=== PATIENT | male | born 1945 | race Caucasian/White ===

== ENCOUNTER 2022-04-18 05:52 | Day surgery (SDC) | payer MEDICARE, OTHER ==
[~2022-04-18] VITALS: Ht 172.7 cm; Wt 86.4 kg
[~2022-04-18 05:52] MED LIST: HYDROCHLOROTHIA25 MG PO; HYDROCODON-ACE1 EA10 PO; IBUPROFEN600 MG PO; LISINOPRIL5 MG PO; MAPAP325 MG PO
--- NOTE | 2022-04-18 09:04 | NUR ---
04/18/22 0904 Sheets,Yasemin 0847 PT ARRIVED TO PACU ON RA WITH ORAL AIRWAY IN PLACE. RESP EVEN AND UNLABORED, UPPER WHEEZE NOTED AND NOSIEY AIRWAY NOTED. DECREASED BP NOTED AND SURVEYOR HELPER ROD AWARE. PT NONAROUSABLE TO PAINFUL STIMULI. 0856 O2 MASK PLACED AT 6L DUE TO O2 SAT 89-90% ON RA. 0857 CNRA GAVE BP MEDICATION. 0859 PT OPENED HIS AND SMALL COUGH NOTED WITH TACTILE STIMULI. AIRWAY REAMINS IN PLACE AND PT GOES BACK TO SLEEP WITH SNORING NOTED. 0902 O2 MASK REMOVED, O2 SAT 100%.
[2022-04-18] MEDS ORDERED: TYLENOL EXTRA500 MG PO (09:15)
[2022-04-18] MEDS ORDERED: HYDROCODON-ACE1 EA10 PO (09:16)
--- NOTE | 2022-04-18 09:39 | NUR ---
ICED WATER AND COFFEE GIVEN. CALL LIGHT WITHIN REACH. SPOUSE AT BEDSIDE.
--- NOTE | 2022-04-18 10:39 | OR ---
[facility] [address], [place] [address] Signed DATE OF OPERATION: 04/18/2022 SURGEON: Reyna Pacheco MD PREOPERATIVE DIAGNOSES: 1. Right lateral upper lid skin lesion of eye. 2. Left facial epidermal inclusion cyst (large). POSTOPERATIVE DIAGNOSES: 1. Right lateral upper lid chalazion. 2. Left facial epidermal inclusion cyst. PROCEDURES: 1. Excision of right lateral upper lid chalazion. 2. Excision of left facial skin lesion (epidermal inclusion cyst, excision size 4 cm). ANESTHESIA: General LMA, Fredis Siemens, SPECIAL DELIVERY CARRIER INDICATIONS: This 76-year-old white man is a patient of GRACY Lowery. He was referred with a large skin lesion of the left face, seen by superintendent pressure and considered inappropriate for excision in their office. The lesion appears to be a large epidermal inclusion cyst, which has an open pit in the central portion. Almost certainly it is a benign epidermal inclusion cyst. He is here for excision. On the morning of operation, he asks additionally as does his who accompanies him for excision of a right lateral upper eyelid lesion. Examination of the lesion shows it to be initially apparent of a probable skin tag but upon examination and operation more likely a chalazion. He understands the risk of the excision of both lesions including, but not limited to bleeding, infection, eyelid deformity, and other unforeseen complications. Understanding this, he wishes to proceed. FINDINGS: The eyelid lesion in the final analysis was most likely a chalazion. It was excised intact and fully without disruption to the normal anatomic structures. The left facial lesion was definitely an epidermal inclusion cyst, which was rather large. A 4 cm excision was required to excise it fully. It was then excised intact. Electronically Signed By: REYNA PACHECO MD 04/18/22 1039 PATIENT NAME: ANDI MARTINEZ OPERATIVE REPORT DATE OF : 43 REPORT #: [id number] PHYSICIAN: REYNA PACHECO MD PCP: TONIA PITTS NP REPORT IS CONFIDENTIAL AND NOT TO BE RELEASED WITHOUT AUTHORIZATION [facility] [address], [place] [address] Signed DESCRIPTION OF PROCEDURE: The patient was brought to the operating room, and given a general LMA type anesthetic. Preoperative antibiotic Ancef was given. Examination first was undertaken of the right lateral upper lid skin lesion. The lesion appeared to be inferior to the eyelash or likely this represented a chalazion and a simple skin tag. A neomycin polymyxin B and dexamethasone ophthalmic ointment was placed on the sclerae. The area was carefully prepared with Betadine swabs. An isolating blue towel drape was applied. The lesion was grasped with Adson forceps and using a 15 blade, carefully shelled out from surrounding tissue. No deep tissue destruction occurred. It was passed as skin lesion of eyelid. Minimal needlepoint electrocautery was used for small capillary bleeding. Two interrupted 6-0 nylon sutures were used to close the skin of the area. The eyelid was replaced in normal anatomic configuration. A small Band-Aid applied and tape applied to protect the eye for the following procedure. Gowns and gloves were changed and the left face was then prepared with a Betadine based solution and draped sterilely. The lesion was marked and its subdermal extent was approximately 2 cm at least. Along the line of skin tension, elliptical incision was made incorporating the central punctum of the eroding skin lesion. Using sharp dissection with a 15-blade, the lesion was shelled out including the overlying skin. Complete excision with intact lesion was noted. Electrocautery was used for hemostasis in the base of the wound. The wound was irrigated. The wound was closed in layers with interrupted 4-0 Vicryl and a running 4-0 nylon for the skin itself. Bacitracin was applied to the site as was a Band-Aid. The patient was ultimately extubated and transferred to the recovery room in good condition having suffered no complications. Sponge, needle, and instrument counts were reported as correct x3. Reyna Pacheco MD JM/MODL /[id number] Electronically Signed By: REYNA PACHECO MD 04/18/22 1039 PATIENT NAME: ANDI MARTINEZ OPERATIVE REPORT DATE OF : 43 REPORT #: [id number] PHYSICIAN: REYNA PACHECO MD PCP: TONIA PITTS NP REPORT IS CONFIDENTIAL AND NOT TO BE RELEASED WITHOUT AUTHORIZATION [address] [address] Signed cc: GRACY Lowery Copies: ~ Electronically Signed By: REYNA PACHECO MD 04/18/22 1039 PATIENT NAME: ANDI MARTINEZ OPERATIVE REPORT DATE OF : 43 REPORT #: [id number] PHYSICIAN: REYNA PACHECO MD PCP: TONIA PITTS NP REPORT IS CONFIDENTIAL AND NOT TO BE RELEASED WITHOUT AUTHORIZATION
--- NOTE | 2022-04-18 10:42 | NUR ---
PATIENT STANDS AT THE BEDSIDE AND SELF-CATHETERIZES INTO URINAL, WHICH IS BASELINE FOR HIM. HE DENIES DIZZINESS. VERBAL AND WRITTEN DISCHARGE INSTRUCTIONS ARE PROVIDED AND PATIENT AND HIS SPOUSE VERBALIZE UNDERSTANDING.
== END 2022-04-18 10:55 | disposition home or self-care (01) ==
LOC: DS 05:52
PROVIDERS: ATTEND Surgery
PROC: 0HB1XZZ Excision of Face Skin, External Approach (ICD-10-PCS; 2022-04-18)
PROC: 08BNXZZ Excision of Right Upper Eyelid, External Approach (ICD-10-PCS; principal; 2022-04-18 07:30)
DX: D36.11 Benign neoplasm of peripheral nerves and autonomic nervous system of face, head, and neck (principal); H00.11 Chalazion right upper eyelid; D48.5 Neoplasm of uncertain behavior of skin; I10 Essential (primary) hypertension; L72.0 Epidermal cyst
CPT/HCPCS: 00300; J0690; J1644; J2250; J2704; J3010; J7121

== ENCOUNTER 2023-09-06 08:30 | Emergency (ER) | payer MEDICARE, OTHER ==
[~2023-09-06] VITALS: Ht 172.7 cm; Wt 83.6 kg
[~2023-09-06 08:30] MED LIST changes: +TYLENOL EXTRA500 MG PO
--- OUTSIDE RECORDS SUMMARY | 2023-09-06 08:37 | XMS ---
PreManage Notification: ANDI MARTINEZ Security Residence Hall Director Events No recent Security Events currently on file CRITERIA MET - [facility] - 2 Visits in 30 Days CARE PROVIDERS -, [facility]: [place] Assistant Current [place] PHONE: [phone] -, Ishan- Dentist: [place] Assistant Current [facility] PHONE: [phone] [facility]/Center: [facility] Current \F\ [facility] PHONE: [phone] Antonio has no Care Guidelines for this patient. [facility] (12 MO.) [facility] NOTE: Visits indicate total known visits. ED/UCC VISIT TRACKING (12 MO.) 09/06/2023 08:31 [facility] [place] TYPE: Emergency COMPLAINT: - CONSTIPATION 08/10/2023 08:50 [facility] Kip [facility] ([place]) TYPE: Emergency DIAGNOSES: - Constipation, unspecified - Constipated - Constipation INPATIENT VISIT TRACKING (12 MO.) No inpatient visits to display in this time frame [email or web address]
[2023-09-06] MEDS ORDERED: LOSARTAN POTASS50 MG PO (08:42)
[2023-09-06] MEDS ORDERED: INDAPAMIDE1.25 MG PO (08:42)
[2023-09-06 09:06] LABS: EOSINOPHILS 1.4 % (0-6); HEMATOCRIT 49.1 % (35.0-50.0); HEMOGLOBIN 16.7 g/dL (12.0-18.0); LYMPHOCYTES 12.9 % (24-44); MCH 29.9 (27-36); MONOCYTES 9.7 % (0-12); PLATELET COUNT 212 K/uL (140-440); RBC 5.57 M/ul (4.3-5.7); RDW 14.1 (10.5-15.0)
[2023-09-06 09:18] LABS: ALBUMIN 3.1 g/dL (3.4-5.0); ALBUMIN/GLOBULIN RATIO 0.76 (1.1-2.4); ANION GAP 11.9 (7-21); BILIRUBIN, TOTAL 0.6 ng/dL (0.2-1.0); BUN/CREATININE RATIO 16.98 (6.0-28.6); CALCIUM 9.5 mg/dL (8.5-10.1); CREATININE, SERUM 1.06 mg/dL (0.70-1.30); POTASSIUM 3.9 mmol/L (3.5-5.1); PROTEIN, TOTAL 7.2 g/dL (6.4-8.2)
[2023-09-06] MEDS ORDERED: GOLYTELY SOLU4000 ML PO (09:47)
[2023-09-06 09:58] VITALS: BP 127/76
== END 2023-09-06 09:58 | disposition home or self-care (01) ==
LOC: ED 08:30
PROVIDERS: Emergency Medicine
DX: K59.00 Constipation, unspecified (principal); R74.8 Abnormal levels of other serum enzymes; F17.200 Nicotine dependence, unspecified, uncomplicated; I10 Essential (primary) hypertension
CPT/HCPCS: 36415; 74019; 80053; 83735; 85025; 99283

== ENCOUNTER 2023-12-27 12:27 | Emergency (ER) | payer MEDICARE, OTHER ==
[~2023-12-27] VITALS: Ht 172.7 cm; Wt 83.1 kg
[~2023-12-27 12:27] MED LIST changes: +GOLYTELY SOLU4000 ML PO; +INDAPAMIDE1.25 MG PO; +LOSARTAN POTASS50 MG PO
[2023-12-27] MEDS ORDERED: PREDNISONE5 MG PO (13:29)
[2023-12-27] MEDS ORDERED: ABIRATERONE AC250 MG PO (13:29)
[2023-12-27] MEDS ORDERED: SODIUM CHLORIDE 0.9% 1,000 ML IV ONE (13:30)
[2023-12-27] MEDS ORDERED: ondansetron HCL 4 MG/2 ML VIAL IV ONE (13:30)
[2023-12-27 13:32] LABS: BASOPHILS 0.1 % (0-2); EOSINOPHILS 2.4 % (0-6); HEMATOCRIT 38.4 % (35.0-50.0); HEMOGLOBIN 12.7 g/dL (12.0-18.0); LYMPHOCYTES 5.8 % (24-44); MCH 28.8 (27-36); MCHC 33.1 g/dl (30-36); MCV 87.1 fl (81-99); MONOCYTES 13.2 % (0-12); NEUTROPHILS 78.5 % (39-80); PLATELET COUNT 248 K/uL (140-440); RBC 4.41 M/ul (4.3-5.7)
[2023-12-27 13:44] LABS: ALBUMIN 2.6 g/dL (3.4-5.0); ALBUMIN/GLOBULIN RATIO 0.67 (1.1-2.4); ANION GAP 11.8 (7-21); BILIRUBIN, TOTAL 0.4 ng/dL (0.2-1.0); BUN/CREATININE RATIO 23.85 (6.0-28.6); CALCIUM 9.2 mg/dL (8.5-10.1); CREATININE, SERUM 1.09 mg/dL (0.70-1.30); POTASSIUM 4.8 mmol/L (3.5-5.1); PROTEIN, TOTAL 6.5 g/dL (6.4-8.2)
[2023-12-27] MEDS ORDERED: KETOROLAC TROMETHAMINE 30 MG/ML VIAL IV ONE (13:45)
[2023-12-27 13:49] LABS: BILIRUBIN, URINE NEGATIVE (negative); BLOOD/HGB, URINE NEGATIVE (Negative); KETONE, URINE NEGATIVE (Negative); LEUK ESTERASE, URINE NEGATIVE (negative); NITRITE, URINE NEGATIVE (negative); PH, URINE 6.5 (5-7)
[2023-12-27] MEDS ORDERED: ONDANSETRON ODT8 MG PO (16:25)
[2023-12-27 16:35] VITALS: BP 108/62
== END 2023-12-27 16:35 | disposition home or self-care (01) ==
LOC: ED 12:27
PROVIDERS: Emergency Medicine
DX: R10.11 Right upper quadrant pain (principal); K80.20 Calculus of gallbladder without cholecystitis without obstruction; C61 Malignant neoplasm of prostate; C79.51 Secondary malignant neoplasm of bone; R91.1 Solitary pulmonary nodule; J90 Pleural effusion, not elsewhere classified; I10 Essential (primary) hypertension; F17.200 Nicotine dependence, unspecified, uncomplicated; Z79.899 Other long term (current) drug therapy
CPT/HCPCS: 36415; 71045; 71260; 74177; 76705; 80053; 81003; 83690; 85025; 99284-25; J1885; J2405; J7030; Q9967

== ENCOUNTER 2024-06-19 08:04 | Inpatient (IN) | payer MEDICARE, MEDICAID ==
[~2024-06-19] VITALS: Ht 172.7 cm; Wt 81.8 kg
[~2024-06-19 08:04] MED LIST changes: +ABIRATERONE AC250 MG PO; +ONDANSETRON ODT8 MG PO
[2024-06-19] MEDS ORDERED: ALBUTEROL/IPRATROPIUM 3 ML NEB INH PRN ×2 (08:30→18:47)
[2024-06-19] MEDS ORDERED: FUROSEMIDE 40 MG/4 ML VIAL IV ONE (08:45)
[2024-06-19 08:55] LABS: BASOPHILS 0.8 % (0-2); EOSINOPHILS 0.2 % (0-6); HEMATOCRIT 47.9 % (35.0-50.0); HEMOGLOBIN 16.6 g/dL (12.0-18.0); LYMPHOCYTES 5.7 % (24-44); MCH 30.3 (27-36); MCHC 34.6 g/dl (30-36); MCV 87.6 fl (81-99); MONOCYTES 6.1 % (0-12); NEUTROPHILS 87.2 % (39-80); PLATELET COUNT 240 K/uL (140-440); RBC 5.47 M/ul (4.3-5.7); RDW 15.9 (10.5-15.0)
[2024-06-19 09:22] LABS: ALBUMIN 3.2 g/dL (3.4-5.0); ALBUMIN/GLOBULIN RATIO 0.89 (1.1-2.4); ANION GAP 9.7 (7-21); BILIRUBIN, TOTAL 0.6 mg/dL (0.2-1.0); BUN/CREATININE RATIO 18.18 (6.0-28.6); CALCIUM 9.2 mg/dL (8.5-10.1); CREATININE, SERUM 1.1 mg/dL (0.70-1.30); MAGNESIUM 1.8 mg/dL (1.8-2.4); POTASSIUM 3.7 mmol/L (3.5-5.1); PROTEIN, TOTAL 6.8 g/dL (6.4-8.2)
[2024-06-19] MEDS ORDERED: AZITHROMYCIN 250 MG TAB PO ONE (11:15)
[2024-06-19] MEDS ORDERED: CEFTRIAXONE SODIUM 1 GM in SODIUM CHLORIDE 0.9% 100 ML IV ONE (11:15)
[2024-06-19] MEDS ORDERED: ondansetron HCL 4 MG/2 ML VIAL IV PRN (12:45)
[2024-06-19] MEDS ORDERED: ACETAMINOPHEN 325 MG TAB PO PRN (12:45)
[2024-06-19] MEDS ORDERED: DICLOFENAC 1% TOPICAL GEL TOP PRN (13:15)
[2024-06-19] MEDS ORDERED: VENTOLIN HFA18 GM INH (14:16)
[2024-06-19] MEDS ORDERED: CALCIUM 600-D31 EAC1 PO (14:17)
[2024-06-19] MEDS ORDERED: PREDNISONE5 MG PO (14:18)
[2024-06-19] MEDS ORDERED: DORZOLAMIDE-TIM10 ML OU (14:19)
[2024-06-19 14:21] VITALS: BP 151/76
--- NOTE | 2024-06-19 14:30 | NUR ---
PT TRANSFERRED TO MS ROOM 114, VIA STRETCHER, PT AMBULATED TO BED W/O DIFFICULTY. REPORT RECIEVED AT THE BEDSIDE. AT THE BEDSIDE. ORIENTED TO THE CALL LIGHT IN REACH.
--- NOTE | 2024-06-19 15:05 | NUR ---
NILSON CJ IN THE ROOM GETTING REPORT. VITALS WERE TAKEN. A SANDWICH BOX AND ICE WATER WERE PROVIDED.
[2024-06-19] MEDS ORDERED: [UNRECOGNIZED DRUG - OTHER] TOP (15:07)
--- NOTE | 2024-06-19 15:07 | NUR ---
MED REC COMPLETE
--- NOTE | 2024-06-19 15:16 | NUR ---
INTO SEE PATIENT. PERSONAL HEALTH INFORMATION REVIEWED. PATIENT SITIING AT BEDSIDE. PATIENT LIVES IN A HOME WITH FIVE STEPS INSIDE THE HOME DENIES DIFFCULTY DOING THEM. PATIENT DOES NOT USE DME. DOES DRIVE. LIVES AT HOME WITH HIS . DENIES DIFFCULTY PAYING UTLITIES OR OBTAINING FOOD. PATIENT WILL DRIVE HIM HOME AT TIME OF DISCHARGE. DENIES ANY NEEDS FROM CM AT THIS TIME.
--- NOTE | 2024-06-19 17:15 | NUR ---
IN ROOM, AFTER DISCUSSING EARLIER WAS TAKING MEDICATIONS HOME, MEDICATIONS WERE ON BEDSIDE TABLE. PT STATES HE TOOK HIS PREDNISONE AND LOSARTAN AND IS CONCERNED HE HAS TO TAKE HIS CANCER MEDICATION IN THE MORNING. CALLED DEBBY TO UPDATE PT TAKING MEDICATIONS AND CONCERNS. DEBBY STATED TO SEND HOME CANCER MEDS TO PHARMACY TO MAKE A LABEL. DISCUSSED WITH PT HOME MEDS WILL BE PLACED IN LOCK BOX IN ROOM.
--- NOTE | 2024-06-19 18:48 | NUR ---
PT AWAKE IN BED, DENIES NEEDS. CALL LIGHT IN REACH.
[2024-06-19 18:51] VITALS: BP 139/69
[2024-06-19] MEDS ORDERED: ALBUTEROL SULFATE 0.083% 3 ML VIAL INH PRN (19:00)
--- NOTE | 2024-06-19 19:31 | NUR ---
RECEIVED REPORT. PT SITTING ON EDGE OF BED. NO NEEDS PRESENTLY. CALL LIGHT IN REACH
--- NOTE | 2024-06-19 20:18 | EKG ---
[facility] [address] [facility] [place] [address] Signed Normal sinus rhythm with sinus arrhythmia Left posterior fascicular block Abnormal ECG When compared with ECG of 12-APR-2022 15:26, Left posterior fascicular block is now present Confirmed by Torrey Guardado MD () on 06/19/2024 8:18:28 PM Electronically Signed By: TORREY GUARDADO MD 06/19/24 2018 PATIENT NAME: ANDI MARTINEZ Electrocardiogram DATE OF : 43 PHYSICIAN: TORREY GUARDADO MD REPORT #: [id number] REPORT IS CONFIDENTIAL AND NOT TO BE RELEASED WITHOUT AUTHORIZATION
[2024-06-19 20:25] VITALS: BP 114/59
[2024-06-19 20:26] VITALS: BP 114/59
--- NOTE | 2024-06-19 20:26 | NUR ---
VITALS, ASSESSMENT. ORIENTED PT TO PLAN FOR TONIGHT. RESPIRATORY THERAPY IN ROOM. INSTRUCTED PT TO CALL IF OOB, PT AGREES. PLACED ON CPOX MACHINE. CALL LIGHT IN REACH, BED ALARM ACTIVE.
--- NOTE | 2024-06-19 22:34 | NUR ---
PT IN BED WITH EYES CLOSED, SPO2 90%. RISE AND FALL OF CHEST NOTED, CALL LIGHT IN REACH, BED ALARMA CTIVE
[2024-06-20] VITALS (7 sets, daily range): BP systolic 103–124; BP diastolic 47–74
--- NOTE | 2024-06-20 00:24 | NUR ---
PT RESTING WITH EYES CLOSED, SPO2 92%, RISE AND FALL OF CHEST NOTED. CALL LIGHT IN REACH, BED ALARM ACTIVE
--- NOTE | 2024-06-20 01:06 | NUR ---
BED ALARM ANSWERED. PT SITTING AT EDGE OF BED DRINKING WATER. VITALS AND I&O OBTAINED. WATER REFILLED. PT STATES NO FURTHER NEEDS AT THIS TIME. CALL LIGHT WITHIN REACH. PT BACK IN BED WITH BED ALARM ON.
--- NOTE | 2024-06-20 02:05 | NUR ---
PT RESTING IN BED WITH EYES CLOSED. RISE AND FALL OF CHEST OBSERVED, CALL LIGHT IN REACH
--- NOTE | 2024-06-20 04:12 | NUR ---
PT RESTING IN BED WITH EYES CLOSED, RISE AND FALL OF CHEST OBSERVED. CALL LIGHT IN REACH
--- NOTE | 2024-06-20 05:27 | NUR ---
PT SLEPT SOUNDLY FOR MUCH OF SHIFT N: A&OX4. HAS BLE NUMBNESS AT BASELINE VITALS STABLE, NO COMPLAINTS OF PAIN CV: 2-3+ EDEMA OF BLE R: SATTING LOW 90'S ON 2LNC OVERNIGHT. FINE CRACKLES. DENIES SOB GI: TOLERATING SODIUM RESTRICTED DIET. : SELF-CATHS MS: IND SKIN: ABRASION OF CALF PLAN: CONTINUE I.S. AND ATTEMPT TO WEAN O2. ENCOURAGE AMBULATION.
[2024-06-20 05:32] LABS: BASOPHILS 0.6 % (0-2); EOSINOPHILS 0.4 % (0-6); HEMOGLOBIN 16.2 g/dL (12.0-18.0); LYMPHOCYTES 9.3 % (24-44); MCH 30.4 (27-36); MCHC 34.5 g/dl (30-36); MCV 88.3 fl (81-99); NEUTROPHILS 79.7 % (39-80); PLATELET COUNT 222 K/uL (140-440); RBC 5.32 M/ul (4.3-5.7); RDW 16.4 (10.5-15.0)
[2024-06-20 05:54] LABS: ALBUMIN 2.9 g/dL (3.4-5.0); ALBUMIN/GLOBULIN RATIO 0.83 (1.1-2.4); ANION GAP 5.6 (7-21); BILIRUBIN, TOTAL 0.4 mg/dL (0.2-1.0); BUN/CREATININE RATIO 18.51 (6.0-28.6); CALCIUM 8.8 mg/dL (8.5-10.1); CREATININE, SERUM 1.35 mg/dL (0.70-1.30); PHOSPHORUS, INORGANIC 3.4 mg/dL (2.5-4.9); POTASSIUM 3.6 mmol/L (3.5-5.1); PROTEIN, TOTAL 6.4 g/dL (6.4-8.2)
[2024-06-20] MEDS ORDERED: ABIRATERONE ACETATE 250 MG TABLET PO SCH (06:00)
--- NOTE | 2024-06-20 06:28 | NUR ---
MORNING MEDS. PT SELF-CATHETERIZES IN BATHROOM. NO OTHER NEEDS PRESENTLY. CALL LIGHT IN REACH
--- NOTE | 2024-06-20 07:11 | NUR ---
RECIEVED SHIFT REPORT FROM NLISON RODRIGUEZ. PT IS AWAKE IN BED. STUDENT INTRODUCED TO PT THAT WILL BE ASSISTING IN PROVIDING CARE. PT COMPLIANT. DENIES NEEDS AT THIS TIME. CALL LIGHT IN REACH.
--- NOTE | 2024-06-20 08:13 | NUR ---
PATIENT WAS IN BED AT THIS TIME, NIGHTCLUB MANAGER CAME IN AND GOT PATIENTS WEIGHT, IN FORMED THE NURSE. PATIENT SITTING UP EATTING BREAKFAST. CALL LIGHT WITH IN REACN AND NOTHING ELSE NEEDED AT THIS TIME.
[2024-06-20] MEDS ORDERED: ENOXAPARIN SODIUM 40 MG/0.4 ML SYR SUB-Q SCH (09:00)
[2024-06-20] MEDS ORDERED: FUROSEMIDE 40 MG/4 ML VIAL IV SCH ×2 (09:00→11:31)
[2024-06-20] MEDS ORDERED: AZITHROMYCIN 500 MG in DEXTROSE 5% 250 ML IV SCH (09:00)
[2024-06-20] MEDS ORDERED: CEFTRIAXONE SODIUM 2 GM in SODIUM CHLORIDE 0.9% 100 ML IV SCH (09:00)
--- NOTE | 2024-06-20 09:31 | NUR ---
PATIENT IS SITTING AT THE EDGE OF BED VISITING WITH . NATURAL GAS ENGINEER CHARTED VITALS AND I&O'S, CALL LIGHT WITH IN REACH AND NOTHING ELSE NEEDED AT THIS TIME.
--- NOTE | 2024-06-20 09:55 | NUR ---
MORNING ASSESSMENT COMPLETE. PT IS COMPLAINING IV FEELS UNCOMFORTABLE, FEELING "FULL". ABX INFUSING AT THIS TIME. FLUSHED IV MINOR SWELLING NOTED, BUT ABLE TO FLUSH W/O DIFFICULTY. WILL AVILA PT EDUCATED. COURSE THOUGHOUT LUNGS, SITTING UP ON THE SIDE OF THE BED, AT BEDSIDE. CALL LIGHT IN REACH.
--- NOTE | 2024-06-20 10:02 | NUR ---
IV ANTIBIOTICS FINISHED AT 1000, IV FLUSHED WITH 10 ML NORMAL SALINE, IV PATENT
--- NOTE | 2024-06-20 10:08 | NUR ---
UR CLINICAL REVIEW: 2MN VERSALUS, MEETS INPT FOR CHF OXYGEN NEEDS, IV DIURETIC, ECHO, ANTIBIOITCS MEDICARE INPT 06/19/24 @ 1246 ORDER MATCHES REG NO AUTH REQUIRED PER MEDICARE RULES DC TO HOME IN 1-2 DAYS.
[2024-06-20] MEDS ORDERED: guaiFENesin 600 MG TABCR PO PRN (11:45)
[2024-06-20] MEDS ORDERED: BENZONATATE 100 MG CAP PO PRN (11:45)
[2024-06-20] MEDS ORDERED: PHARMACY RENAL DOSE ADJUSTMENT 1 DOSE MISC PO SCH (12:00)
--- NOTE | 2024-06-20 12:45 | NUR ---
PT IS STANDING IN ROOM, USING I.S. TOLERATING WELL.
--- NOTE | 2024-06-20 12:55 | NUR ---
PATIENT WAS SITTING ON BED IN ROOM AT THIS TIME, AUDIT TECH CHARTED VITALS AND I&O'S, CALL LIGHT WITH IN REACH AND NOTHING ELSE NEEDED AT THIS TIME.
--- NOTE | 2024-06-20 14:30 | NUR ---
PT LAYING IN BED, WATCHING TV. CALL LIGHT IN REACH
--- NOTE | 2024-06-20 16:15 | NUR ---
PT AWAKE IN BED, LEGS ELEVATED. AT BEDSIDE. CALL LIGHT IN REACH
--- NOTE | 2024-06-20 16:52 | NUR ---
Spoke Osmani. He denies needs and wants to go home. States he is walking in the room as he wants to go home.
--- NOTE | 2024-06-20 18:23 | NUR ---
PT AWAKE IN BED, DENIES NEEDS. CALL LIGHT IN REACH.
--- NOTE | 2024-06-20 18:30 | NUR ---
PATIENT IS IN BED RESTING AT THIS TIME, LOAD OUT WORKER CHARTED VITALS AND I&O'S, CALL LIGHT WTIH IN REACH AND NOTHING ELSE NEEDED AT THIS TIME.
--- NOTE | 2024-06-20 19:38 | NUR ---
RECEIVED REPORT. PT RESTING IN BED WITH EYES CLOSED, CHEST RISE AND FALL OBSERVED. [facility]ACH
[2024-06-20] MEDS ORDERED: ALBUTEROL/IPRATROPIUM 3 ML NEB INH SCH (20:00)
--- NOTE | 2024-06-20 20:28 | NUR ---
VITALS, ASSESSMENT. PT DENIES PAIN, REPORTS NO SOB. SATTING LOW 90'S ON 1LNC. PT USING I.S. FREQUENTLY. NO NEEDS, CALL LIGHT IN REACH
--- NOTE | 2024-06-20 22:30 | NUR ---
PT RESTING IN BED WITH EYES CLOSED, RISE AND FALL OF CHEST NOTED. CALL LIGHT IN REACH, BED ALARM ACTIVE
[2024-06-21] VITALS (7 sets, daily range): BP systolic 112–129; BP diastolic 55–78
--- NOTE | 2024-06-21 00:24 | NUR ---
PT IN BED WITH EYES CLOSED, RISE AND FALL OF CHEST OBSERVED, CALL LIGHT IN REACH
--- NOTE | 2024-06-21 02:58 | NUR ---
PT RESTING IN BED WITH EYES CLOSED, RISE AND FALL OF CHEST NOTED. CALL LIGHT IN REACH
--- NOTE | 2024-06-21 05:24 | NUR ---
VITALS, AM MEDS. NO OTHER NEEDS, CALL LIGHT IN REACH
[2024-06-21 05:39] LABS: BASOPHILS 0.6 % (0-2); EOSINOPHILS 0.9 % (0-6); HEMATOCRIT 45.6 % (35.0-50.0); HEMOGLOBIN 15.5 g/dL (12.0-18.0); MCH 29.9 (27-36); MCV 87.9 fl (81-99); MONOCYTES 13.2 % (0-12); NEUTROPHILS 75.3 % (39-80); PLATELET COUNT 216 K/uL (140-440); RBC 5.19 M/ul (4.3-5.7); RDW 16.3 (10.5-15.0)
[2024-06-21 05:53] LABS: ALBUMIN 2.7 g/dL (3.4-5.0); ALBUMIN/GLOBULIN RATIO 0.79 (1.1-2.4); ANION GAP 4.1 (7-21); BILIRUBIN, TOTAL 0.4 mg/dL (0.2-1.0); BUN/CREATININE RATIO 20.83 (6.0-28.6); CALCIUM 8.3 mg/dL (8.5-10.1); CREATININE, SERUM 1.2 mg/dL (0.70-1.30); POTASSIUM 3.1 mmol/L (3.5-5.1); PROTEIN, TOTAL 6.1 g/dL (6.4-8.2)
--- NOTE | 2024-06-21 07:21 | NUR ---
LACE ROLLER GOT FRESH ICE WATER FOR PATIENT, OFFERED A WARM WASH CLOTH, HE REFUSED AT THIS TIME AND WANTED TO KEEP RESTING TILL BREAKFAST. I WILL OFFER IT AGAIN ONCE HE IS UP, CALL LIGHT WITH IN REACH AND NOTHIGN ELSE NEEDED AT THIS TIME.
--- NOTE | 2024-06-21 07:24 | NUR ---
RECEIEVED SHIFT REPORT. RESTING IN BED, EYES CLOSED, BREATHING EVEN AND UNLABORED. CPO2 94% ON 1L. CALL LIGHT IN REACH.
[2024-06-21] MEDS ORDERED: POTASSIUM CHLORIDE 40 MEQ,LIDOCAINE HCL 1% 40 MG in DEXTROSE 5% 250 ML IV ONE (07:45)
--- NOTE | 2024-06-21 09:10 | NUR ---
MORNING ASSESSMENT COMPLETE. SITTING UP ON THE SIDE OF BED, ABX INFUSING. COURSE THROUGHOUT LUNGS, COURSE CRACKLES BILAT LOWER. CALL LIGHT IN REACH. DENIES NEEDS.
--- NOTE | 2024-06-21 10:15 | NUR ---
PATIENT IS SITTING ON THE EDGE OF THE BED AT THIS TIME, LAUNCH CHECK OUT CHARTED VITALS AND I&O'S, IN ROOM, GOT FRESH ICE WATER, CALL LIGHT WITH IN REACH AND NOTHING ELSE NEEDED AT THIS TIME.
--- NOTE | 2024-06-21 10:40 | NUR ---
KCL INFUSING, PT EDUCATED ON MEDICATION. CURRENTLY RA SPO2 91%. REFUSING TO NOT WEAR OXYGEN. DENIES SOB. AT BEDSIDE. CALL LIGHT IN REACH.
--- NOTE | 2024-06-21 11:21 | NUR ---
PATIENT IS SITTING ON THE EDGE OF HIS BED AT THIS TIME, CLAIM MANAGER OFFERED PATIENT A SHOWER, WHICH HE REFUSED, I WILL ASK AGAIN LATER. IS IN ROOM WITH HIM, CALL LIGHT WITH IN REACH AND NOTHING ELSE NEEDED AT THIS TIME.
[2024-06-21] MEDS ORDERED: FUROSEMIDE 40 MG/4 ML VIAL IV SCH (13:00)
--- NOTE | 2024-06-21 14:12 | NUR ---
PT RESTING IN BED, RESTING COMFORTABLY. PT WOKE FOR MEDICATIONS, DENIES NEEDS. CALL LIGHT IN REACH. VISITORS AT BEDSIDE.
--- NOTE | 2024-06-21 17:46 | NUR ---
PATIENT IS IN BED AT THIS TIME, TIER OVER CHARTED VITALS AND I&O'S, GOT FRESH ICE WATER, CALL LIGHT WITH IN REACH AND NOTHING ELSE NEEDED AT THIS TIME.
--- NOTE | 2024-06-21 18:21 | NUR ---
PT IS AWAKE IN BED, DENIES NEEDS. CALL LIGHT IN REACH.
--- NOTE | 2024-06-21 19:32 | NUR ---
PT ALERT, RESTING IN BED. NASAL CANNULA NOT IN NOSE, PT SATTING AT 88% ON ROOM AIR. REPLACED NC AND ENCOURAGED PT TO USE I.S.
--- NOTE | 2024-06-21 20:12 | NUR ---
VITALS, ASSESSMENT. NO NEEDS AT THIS TIME, CALL LIGHT INR EACH. FEET ELEVATED WHILE IN BED
--- NOTE | 2024-06-21 22:22 | NUR ---
PT RESTING IN BED WITH FEET ELEVATED, RISE AND FALL OF CHEST OBSERVED, CALL LIGHT IN REACH
--- NOTE | 2024-06-22 00:18 | NUR ---
PT RESTING IN BED WITH EYES CLOSED, RISE AND FALL OF CHEST OBSERVED, CALL LIGHT IN REACH
--- NOTE | 2024-06-22 02:16 | NUR ---
PT RESTING IN BED WITH EYES CLOSED, CALL LIGHT IN REACH
--- NOTE | 2024-06-22 04:16 | NUR ---
PT RESTING IN BED WITH EYES CLOSED, CALL LIGHT IN REACH
--- NOTE | 2024-06-22 04:31 | NUR ---
RESPONDED TO CALL LIGHT. ASSISTED PT TO BATHROOM AND BACK TO BED. NO NEEDS PRESENTLY, CALL LIGHT IN REACH
[2024-06-22 04:47] VITALS: BP 128/69
[2024-06-22 05:10] LABS: BASOPHILS 0.7 % (0-2); EOSINOPHILS 1.3 % (0-6); HEMATOCRIT 46.7 % (35.0-50.0); HEMOGLOBIN 16.2 g/dL (12.0-18.0); LYMPHOCYTES 12.3 % (24-44); MCH 30.1 (27-36); MCHC 34.7 g/dl (30-36); MONOCYTES 11.4 % (0-12); NEUTROPHILS 74.3 % (39-80); PLATELET COUNT 235 K/uL (140-440); RBC 5.37 M/ul (4.3-5.7); RDW 15.9 (10.5-15.0)
[2024-06-22 05:27] LABS: ALBUMIN/GLOBULIN RATIO 0.86 (1.1-2.4); ANION GAP 3.4 (7-21); BILIRUBIN, TOTAL 0.5 mg/dL (0.2-1.0); BUN/CREATININE RATIO 19.68 (6.0-28.6); CALCIUM 8.5 mg/dL (8.5-10.1); CREATININE, SERUM 1.27 mg/dL (0.70-1.30); POTASSIUM 3.4 mmol/L (3.5-5.1); PROTEIN, TOTAL 6.5 g/dL (6.4-8.2)
--- NOTE | 2024-06-22 07:23 | NUR ---
RECIEVED SHIFT REPORT. PT IS SITTING ON THE SIDE OF BED, DENIES DISCOMFORT. PLACED ON O2 FOR 88% SPO2 ON RA. NOTICED THIS MORNING LEFT HAND WAS SWOLLEN, PT HAD BLOOD DRAWN ON THAT ARM WITH COBAND NOT WRAPPED TIGHT. DENIES PAIN IN THAT HAND. CALL LIGHT IN REACH.
[2024-06-22] MEDS ORDERED: POTASSIUM CHLORIDE 10 MEQ TABCR PO ONE (08:00)
[2024-06-22 09:39] VITALS: BP 115/55
--- NOTE | 2024-06-22 09:41 | NUR ---
PATIENT SITTING UP IN EDGE OF BED AT THIS TIME. VITALS AND I&O'S DONE AND CHARTED. PATIENT REFUSED SHOWER AT THIS TIME. CALL LIGHT IN REACH. NO FURTHER NEEDS AT THIS TIME.
--- NOTE | 2024-06-22 09:46 | NUR ---
MORNING ASSESSMENT COMPLETE. PT SITTING ON SIDE OF BED, DENIES DISCOMFORT. AT BEDSIDE.
[2024-06-22] MEDS ORDERED: CEFDINIR300 MG PO (10:26)
[2024-06-22] MEDS ORDERED: LASIX40 MG PO (10:28)
[2024-06-22] MEDS ORDERED: POTASSIUM CHLO20 ME1 PO (10:30)
--- NOTE | 2024-06-22 11:35 | NUR ---
PROVIDED PT WITH CHF PACKET, EDUCATED PT AND ON THE INFORMATION PROVIDED. NO QUESTIONS AT THIS TIME. PT GETTING DRESSED WHILE DC PAPERWORK GATHERED.
== END 2024-06-22 11:58 | disposition home or self-care (01) | DRG 193 ==
LOC: ED 08:04 → MS 13:32
PROVIDERS: Emergency Medicine; ADMIT Family Medicine; ATTEND Family Medicine
DX: J18.9 Pneumonia, unspecified organism (principal); J96.01 Acute respiratory failure with hypoxia; C61 Malignant neoplasm of prostate; E87.6 Hypokalemia; I50.9 Heart failure, unspecified; F17.210 Nicotine dependence, cigarettes, uncomplicated; Z71.6 Tobacco abuse counseling; Z79.899 Other long term (current) drug therapy; Z66 Do not resuscitate; Z87.19 Personal history of other diseases of the digestive system; Z86.14 Personal history of Methicillin resistant Staphylococcus aureus infection; I11.0 Hypertensive heart disease with heart failure; Z99.81 Dependence on supplemental oxygen
CPT/HCPCS: 36415; 71045; 71260; 80053; 83735; 83880; 84100; 84484; 85025; 93005; 93010; 93306; 94640; 94667; 94668; 94760; 94762; 99285-25; A9270; J0456; J0696; J1650; J1938; J3480; J3490; J7060; Q9967

== ENCOUNTER 2025-01-18 09:19 | Emergency (ER) | payer MEDICARE, OTHER ==
[~2025-01-18] VITALS: Ht 170.2 cm; Wt 81.0 kg
[~2025-01-18 09:19] MED LIST changes: +CALCIUM 600-D31 EAC1 PO; +CEFDINIR300 MG PO; +DORZOLAMIDE-TIM10 ML OU; +LASIX40 MG PO; +POTASSIUM CHLO20 ME1 PO; +PREDNISONE5 MG PO; +VENTOLIN HFA18 GM INH; +[UNRECOGNIZED DRUG - OTHER] TOP
[2025-01-18] MEDS ORDERED: MIRALAX119 GM PO (11:27)
[2025-01-18] MEDS ORDERED: PERCOCET 5-3251 EACH PO (11:27)
[2025-01-18 11:36] VITALS: BP 159/86
== END 2025-01-18 11:36 | disposition home or self-care (01) ==
LOC: ED 09:19
DX: M54.41 Lumbago with sciatica, right side (principal); F17.200 Nicotine dependence, unspecified, uncomplicated; I10 Essential (primary) hypertension; Z79.899 Other long term (current) drug therapy
CPT/HCPCS: 72192; 99283-25

== ENCOUNTER 2025-02-07 18:14 | Inpatient (IN) | payer MEDICARE, OTHER ==
[~2025-02-07] VITALS: Ht 170.2 cm; Wt 78.9 kg
--- NOTE | ~2025-02-07 | EKG ---
[facility] [address] [facility] [place], [place] [address] Draft EK completed, results pending confirmation PATIENT NAME: ANDI MARTINEZ Electrocardiogram DATE OF : 43 PHYSICIAN: PRELIMINARY REPORT #: [id number] REPORT IS CONFIDENTIAL AND NOT TO BE RELEASED WITHOUT AUTHORIZATION
[~2025-02-07 18:14] MED LIST changes: +MIRALAX119 GM PO; +PERCOCET 5-3251 EACH PO
--- OUTSIDE RECORDS SUMMARY | 2025-02-07 18:21 | XMS ---
PreManage Notification: ANDI MARTINEZ Security Configuration Release Manager Events No recent Security Events currently on file CRITERIA MET - [facility] - 2 Visits in 30 Days CARE PROVIDERS -, [facility]ist: News Cameraman Current [place] PHONE: [phone] -Ishan- Dentist: News Cameraman Current [facility] PHONE: [phone] Antonio has no Care Guidelines for this patient. ELi VISIT COUNT (12 MO.) [address] [place] [address] TOTAL 3 NOTE: Visits indicate total known visits. ED/UCC VISIT TRACKING (12 MO.) 02/07/2025 18:15 [facility] [place] TYPE: Emergency COMPLAINT: - DIFFICULTY BREATHING 01/18/2025 09:19 [facility] [place] TYPE: Emergency COMPLAINT: - FALL DIAGNOSES: - Essential (primary) hypertension - Low back pain, unspecified - Lumbago with sciatica, right side - Nicotine dependence, unspecified, uncomplicated - Other mcfp (current) drug therapy 06/19/2024 08:04 [facility] [place] TYPE: Emergency COMPLAINT: - DIFFICULTY BREATHING INPATIENT VISIT TRACKING (12 MO.) 06/19/2024 13:32 [facility] [place] TYPE: Medical Surgical COMPLAINT: - CHF, PNEUMONIA DIAGNOSES: - Acute respiratory failure with hypoxia - Dependence on supplemental oxygen - Do not resuscitate - Heart failure, unspecified - Hypertensive heart disease with heart failure - Hypokalemia - Malignant neoplasm of prostate - Nicotine dependence, cigarettes, uncomplicated - Other mcfp (current) drug therapy - Personal history of Methicillin resistant Staphylococcus aureus infection - Personal history of other diseases of the digestive system - Pneumonia, unspecified organism - Tobacco abuse counseling [email or web address]
[2025-02-07] MEDS ORDERED: ALBUTEROL/IPRATROPIUM 3 ML NEB INH PRN (18:30)
[2025-02-07 18:46] LABS: BASOPHILS 0.2 % (0.2-1.2); EOSINOPHILS 0.1 % (0.8-7.0); LYMPHOCYTES 6.2 % (21.8-53.1); MCH 28.4 PG (25.7-32.2); MCHC 34.7 g/dL (32.3-36.5); MCV 81.8 fL (79.0-92.2); MONOCYTES 8.4 % (5.3-12.2); NEUTROPHILS 82.6 % (34.0-67.9); RBC 4.02 M/uL (4.63-6.08)
[2025-02-07 19:09] LABS: ALT (SGPT) 21.0 U/L (14-59); AST (SGOT) 45.0 U/L (15-37); GLOMERULAR FILTRATION RATE,EST 89.0 mL/min (>60); PROTEIN, TOTAL 6.2 g/dL (6.4-8.2); UREA NITROGEN 17.0 mg/dL (7-18)
[2025-02-07] MEDS ORDERED: ALBUTEROL/IPRATROPIUM 3 ML NEB INH ONE (21:15)
[2025-02-08] VITALS (10 sets, daily range): BP systolic 109–149; BP diastolic 58–72
[2025-02-08] MEDS ORDERED: SODIUM CHLORIDE 0.9% 1,000 ML IV SCH (00:45)
[2025-02-08] MEDS ORDERED: HYDROmorphone HCL 1 MG/ML SYR IV PRN (00:45)
[2025-02-08] MEDS ORDERED: ACETAMINOPHEN 325 MG TAB PO PRN (00:45)
[2025-02-08] MEDS ORDERED: OXYCODONE/APAP 5/325 TAB PO PRN (01:00)
[2025-02-08] MEDS ORDERED: BUDESONIDE 0.5 MG/2 ML VIAL INH SCH (01:02)
[2025-02-08] MEDS ORDERED: ARFORMOTEROL TARTRATE 15 MCG/2 ML VIAL INH SCH (01:03)
[2025-02-08] MEDS ORDERED: ALBUTEROL SULFATE 0.083% 3 ML VIAL INH PRN (01:15)
--- NOTE | 2025-02-08 01:32 | NUR ---
ANDI (AKA: BRYAN) DOES NOT USE OXYGEN AT HOME. BRYAN DOES NOT USE A HOME CPAP/BIPAP OR ANY HOME INHALED RESPIRATORY MEDICATIONS, EXCEPTING AN ALBUTEROL HFA. RBYAN NEEDS TO QUALIFY FOR HOME OXYGEN. ADDITIONALLY, BRYAN WOULD BENEFIT FROM A HOME NEBULIZER AND SCHEDULED BREATHING TREATMENTS SUCH BROVANA AND PULMICORT BID WITH DUONEB AND ALBUTEROL PRN.
--- NOTE | 2025-02-08 01:45 | NUR ---
PATIENT ARRIVES TO [facility] FLOOR ROOM 113 VIA STRETCHER. PATIENT TRANSFERS SELF TO BED. OXYMASK PLACED DUE TO PATIENT SAT 88%. PATIENT ALERT AND ORIENTED. PATIENT ASSISTED TO BATHROOM VIA SBA, SELF CATHS, 1000ML OF CLEAR YELLOW URINE. RT IN ROOM GIVING BREATHING TREATMENT. LUNG SOUNDS ARE WHEEZY THROUGHOUT. PATIENT SWITCHED TO NC RECEIVING 2L SPO2 94%. CALL LIGHT WITHIN REACH. [facility] NURSE IN THE ROOM AT THIS TIME.
--- NOTE | 2025-02-08 02:40 | NUR ---
PATIENT RESTING IN BED AWAKE. DENIES ANY SOB. ON 2L NC SPO2 94%. CPOX AT BEDSIDE. PATIENT DENIES ANY NEEDS AT THIS TIME. BED ALARM ON FOR PATIENT SAFETY. IVF INFUSING AT THIS TIME. CALL LIGHT WITHIN REACH.
[2025-02-08] MEDS ORDERED: ALBUTEROL/IPRATROPIUM 3 ML NEB INH SCH (04:00)
--- NOTE | 2025-02-08 04:30 | NUR ---
CALL LIGHT ANSWERED. PATIENT ASSISTED TO RECLIENER PER PATIENT REQUEST VIA SBA. PATIENT SITTING UP IN RECLINER AT THIS TIME. CPOX AT BEDSIDE. ON 2L OF OXYGEN VIA NC. RT IN ROOM. PATIENT DOES NOT COMPLAIN SOB. PERSONAL BELONGINGS AND CALL LIGHT WITHIN REACH. CHAIR ALARM ON FOR PATIENT SAFETY. NO FURTHER NEEDS AT THIS TIME.
--- NOTE | 2025-02-08 05:45 | NUR ---
PATIENT SITTING UP IN RECLINER. VSS, CPOX AT BEDSIDE. PATIENT IS ON 2L NC, SPO2 93%. CALL LIGHT WITHIN REACH. CHAIR ALARM ON FOR PATIENT SAFETY. NO FURTHER NEEDS AT THIS TIME
--- NOTE | 2025-02-08 06:58 | NUR ---
PATIENT ASSISTED TO BATHROOM, SELF CATHS, URINATES 1000ML OF CLEAR YELLOW URINE. PATIENT ASSISTED BACK TO RECLINER. CPOX AT BEDSIDE READING 98% ON 2L NC. TELE #3 READING SR WITH SVPBS. PATIENT DENIES SOB. CHAIR ALARM ON FOR PATIENT SAFETY. CALL LIGHT WITHIN REACH. IVF INFUSING AT THIS TIME.
--- NOTE | 2025-02-08 07:56 | NUR ---
REPOR TRECEIVED FROM HUBER DEVINE. PATIENT IN CHAIR, PERSONAL BELONGINGS AND CALL LIGHT IN REACH.
[2025-02-08 08:00] LABS: GLOMERULAR FILTRATION RATE,EST 89.0 mL/min (>60); UREA NITROGEN 12.0 mg/dL (7-18)
--- NOTE | 2025-02-08 08:40 | NUR ---
REVIEWED LAB RESULTS WITH MD. VERBAL ORDERS RECEIVED FOR PO POTASSIUM, SALINE LOCK IV SITE AND DC NORMAL SALINE INFUSION. ORDERS IN CHART. SALINE LOCKED PATIENT PER ORDER. MEDICATIONS ADMINISTERED PER EMAR ORDERS. ASSESMENT, VITAL SIGNS, AND I AND O COMPLETED. PATIENT IN CHAIR. CALL LIGHT AND PERSONAL BELONGINGS IN REACH. PATIENT DENIES CONCERNS.
[2025-02-08] MEDS ORDERED: POTASSIUM CHLORIDE 10 MEQ TABCR PO ONE ×2 (09:00→12:00)
[2025-02-08] MEDS ORDERED: LOSARTAN POTASSIUM 50 MG TAB PO SCH ×2 (09:00→22:45)
[2025-02-08] MEDS ORDERED: POLYETHYLENE GLYCOL 3350 1 PACKET PO SCH (09:00)
[2025-02-08] MEDS ORDERED: SENNOSIDES/DOCUSATE 1 EA TAB PO SCH (09:00)
--- NOTE | 2025-02-08 09:38 | NUR ---
PATIENT IN CHAIR, AT BEDSIDE. CALL LIGHT AND PERSONAL BELONGINGS IN REACH. MEDICATIONS ADMINISTERE PER EMAR.
--- NOTE | 2025-02-08 10:33 | NUR ---
PATIENT IN CHAIR, EYES CLOSED, CHEST RISE EVEN AND UNLABORED. AT BEDSIDE. CALL LIGHT AND PERSONAL BELONGINGS IN REACH OF PATIENT.
--- NOTE | 2025-02-08 11:40 | NUR ---
SPOKE WITH MD NGUYEN, VERBAL ORDER RECEIVED FOR PATIENT TO TAKE HIS HOME MEDICATION ABIRATERONE ACETATE. PATIENT HAD MEDICATION IN LOCK BOX. NO FURTHER ORDERS AT THIS TIME. I NOTIFIED PHARMACY.
--- NOTE | 2025-02-08 11:54 | NUR ---
SPOKE WITH PATIENT'S . SHE REPORTS PATIENT'S LAST BM WAS 02/06/25, SHE REPORTS SHE PREFORMED AN ENEMA FOR PATIENT TO COMPLETE BM, SHE REPORTS STOOL WAS RED IN COLOR. I REVIEWED 'S REPORT WITH MD NGUYEN. VERBAL ORDER RECEIVED FOR GUIAC STOOL TEST X3. NO FURTHER ORDERS AT THIS TIME.
[2025-02-08] MEDS ORDERED: PHARMACY RENAL DOSE ADJUSTMENT 1 DOSE MISC PO SCH (12:00)
[2025-02-08] MEDS ORDERED: ONDANSETRON HCL8 MG PO (12:40)
[2025-02-08] MEDS ORDERED: POTASSIUM CHLO10 ME1 PO (12:40)
[2025-02-08] MEDS ORDERED: FUROSEMIDE20 MG PO (12:41)
--- NOTE | 2025-02-08 13:03 | NUR ---
PATIENT IN CHAIR, AT BEDSIDE. MEDICATION ADMINISTERED PER EMAR. VITAL SIGNS AND I AND O COMPLETED. PATIENT DENIES CONCERNS. CALL LIGHT AND PERSONAL BELONGINGS IN REACH.
[2025-02-08] MEDS ORDERED: ABIRATERONE ACETATE 250 MG TABLET PO SCH (14:00)
--- NOTE | 2025-02-08 14:50 | NUR ---
PATIENT IN CHAIR. SCHEDULED MEDICATION ADMINISTERED PER EMAR ORDER. CALL LIGHT AND PERSONAL BELONGINGS IN REACH OF PATIENT. PATIENT DENIES CONCERNS.
--- NOTE | 2025-02-08 15:15 | NUR ---
PATIENT IN CHAIR, RT AT BEDSIDE. CALL LIGHT IN REACH.
--- NOTE | 2025-02-08 15:59 | NUR ---
MED REC COMPLETE
--- NOTE | 2025-02-08 16:11 | NUR ---
PATIENT REPORTS HE WOULD LIKE TO CONTINUE HIS PREDNISONE HOME MEDICATION. I ADVISED PATIENT THAT HE RECEIVED A DOSE THIS MORNING. HOWEVER, RX WAS DC'D FROM EMAR. I CALLED MD NGUYEN AND REVIEWED THE ABOVE. VERBAL ORDER RECEIVED TO CONTINUE PREDNISONE 5 MG PO BID PREVIOUSLY ORDERED AND LISTED FOR HOME MEDICATION. NO FURTHER ORDERS AT THIS TIME.
--- NOTE | 2025-02-08 16:19 | NUR ---
PATIENT IN CHAIR. CALL LIGHT AND PERSONAL BELONGINGS IN REACH. PATIENT DENIES CONCERNS.
--- NOTE | 2025-02-08 18:29 | NUR ---
PT SELF-CATH'S. PT USES A 14G - HE HAD BROUGHT HIS OWN SUPPLIES, BUT RAN OUT TODAY, 02/08/25. PT USED HOSPITAL SUPPLIES AT 1735 ON 02/08/25. RN HELPED THIS CARRY OUT CLERK GET ANOTHER 14G CATH FROM THE CCU DEPARTMENT MED SURG ONLY HAD 18G DEVICES IN THE SUPPLY ROOM, PLACED IN THE PT'S RESTROOM TODAY 02/08/25 AT 1830, READY FOR THE NEXT TIME PT NEEDS TO SELF-CATH.
--- NOTE | 2025-02-08 19:22 | NUR ---
VERBAL REPORT RECEIVED FROM MARGARITA. PATENT IS SITTING UP IN RECLINER WATCHING TV. CPOX IS AT BEDSIDE. TELE #3 READING SINUS RHYTHM. CHAIR ALARM ON FOR PATIENT SAFETY. CALL LIGHT WITHIN REACH. PATIENT ON 2L VIA NC.
--- NOTE | 2025-02-08 19:46 | NUR ---
PT ASSISTED TO THE BATHROOM WITH 1PA, PT SELF CATH, PT BACK UP TO CHAIR. PT GIVEN FRESH ICE WATER, CONNECTED TO CPOX ON NC. NO OTHER NEEDS AT THIS TIME, CALL LIGHT WITHIN REACH.
--- NOTE | 2025-02-08 20:34 | NUR ---
PATIENT RESTING IN RECLINER AT THIS TIME. MEDICATION ADMINISTRATION COMPLETE. PATIENT DENIES ANY SOB AT THIS TIME. CPOX AT BEDSIDE. ON 1L VIA NC. RT IN THE ROOM AT THIS TIME. TELE #3 SR. NO FURTHER NEEDS AT THIS TIME. CALL LIGHT WITHIN REACH. CHAIR ALARM ON FOR PATIENT SAFETY.
--- NOTE | 2025-02-08 22:32 | NUR ---
PATIENT ASSISTED TO BATHROOM VIA SBA, TOLERATED WELL. PATIENT PERFORMED SELF CATHING, URIANTED 200ML OF YELLOW URINE. PATIENT BACK INTO RECLINER WATCHING TV. CPOX AT BEDSIDE. RECEIVING 1L OF OXYGEN VIA NC. CHAIR ALARM ON FOR PATIENT SAFETY. CALL LIGHT WITHIN REACH. TELE #3 SR.
--- NOTE | 2025-02-08 22:47 | NUR ---
SPOKE TO MD REGARDING PATIENTS HOME MEDICATIONS, NEW ORDERS RECEIVED VIA TELEPHONE METHOD, READ BACK METHOD.
--- NOTE | 2025-02-08 23:03 | NUR ---
PATIENT RECEIVED ORDERED MEDICATION (SEE EMAR). PATIENT SITTING UP IN RECLINER WATCHING TV. CHAIR ALARM ON FOR PATIENT SAFETY. CPOX AT BEDSIDE. ON 1L NC. DENIES SOB. CALL LIGHT WITHIN REACH.
[2025-02-09] VITALS (10 sets, daily range): BP systolic 117–154; BP diastolic 57–76
--- NOTE | 2025-02-09 00:30 | NUR ---
PT ASSISTED TO THE BATHROOM WITH 1PA, BACK UP TO CHAIR. CPOX ON, 1L NC. NEW TELE BATTERY PLACED. VS TAKEN, I&OS DOCUMENTED. PT REPORTS BURNING SENSATION IN [place], PRIMARY RN NOTIFIED.
[2025-02-09] MEDS ORDERED: MAGNESIUM HYDROXIDE/AL HYDROX 30 ML CUP PO PRN (01:00)
--- NOTE | 2025-02-09 01:07 | NUR ---
PATIENT RESTING IN RECLINER WATCHING TV. CPOX AT BEDSIDE. ON 1L NC. TELE #3 READING SR. PATIENT DENIES ANY NEEDS AT THIS TIME. CALL LIGHT WITHIN REACH.
--- NOTE | 2025-02-09 02:51 | NUR ---
PATIENT RESTING IN RECLINER AWAKE. ELEVATED LEGS. PROVIDED BLANKET. CHAIR ALARM ON FOR PATIENT SAFETY. PATIENT DENIES ANY NEEDS AT THIS TIME. CALL LIGHT WITHIN REACH.
--- NOTE | 2025-02-09 03:32 | NUR ---
PATIENT RESTING IN RECLINER EYES CLOSED, RESPIRATIONS EVEN AND UNLABORED. CPOX AT BEDSIDE. TELE #3 SR. RECLINER ALARM ON FOR PATIENT SAFETY. CALL LIGHT WITHIN REACH.
--- NOTE | 2025-02-09 05:21 | NUR ---
PATIENT HAD LOW URINE OUTPUT. BLADDER SCANNED 712 ML NOTED. PATIENT WAS ENCOUARGED TO URINATE, PATIENT URINATED 100ML OF URINE IN [place]. PATIENT ASSISTED TO BEDSIDE COMMODE WITH ARM IN SLING VIA 2PA. PATIENT HAS X2 INCONTIENCE DURING TRANSFER AND WAS ABLE TO URINATE 200ML OF YELLOW/CLOUDY URINE. PATIENT NOW UP IN RECLINER, RIGHT ARM IN SLING. CPOX AT BEDSIDE. VSS. CHAIR ALARM ON FOR PATIENT SAFETY. CALL LIGHT WITHIN REACH.
[2025-02-09 05:34] LABS: BASOPHILS 0.2 % (0.2-1.2); EOSINOPHILS 0 % (0.8-7.0); LYMPHOCYTES 3.4 % (21.8-53.1); MCH 28.3 PG (25.7-32.2); MCHC 33.8 g/dL (32.3-36.5); MCV 83.9 fL (79.0-92.2); MONOCYTES 7.0 % (5.3-12.2); NEUTROPHILS 87.5 % (34.0-67.9); RBC 3.78 M/uL (4.63-6.08)
[2025-02-09 05:55] LABS: ALT (SGPT) 19.0 U/L (14-59); AST (SGOT) 49.0 U/L (15-37); GLOMERULAR FILTRATION RATE,EST 89.0 mL/min (>60); PROTEIN, TOTAL 6.0 g/dL (6.4-8.2); UREA NITROGEN 17.0 mg/dL (7-18)
--- NOTE | 2025-02-09 06:09 | NUR ---
PATIENT IS SITTING UP IN RECLINER AT THIS TIME. PATIENT DENIES SOB. TELE #3 SR. CPOX AT BEDSIDE. SPO2 96% ON 1L NC. CHAIR ALARM ON FOR PATIENT SAFETY. CALL LIGHT WITHIN REACH.
--- NOTE | 2025-02-09 07:32 | NUR ---
PT SITTING IN THE CHAIR WATCHING TV AT TIME OF SHIFT REPORT. REQUESTS WALKER SO HE CAN WALK AROUND. PLAN OF CARE FOR TODAY DISUCSSED. PT DENIES OTHER NEEDS AT THIS TIME. CALL LIGHT IN REACH
[2025-02-09] MEDS ORDERED: ALBUTEROL/IPRATROPIUM 3 ML NEB INH SCH (08:00)
--- NOTE | 2025-02-09 08:05 | NUR ---
Assisted Pt with [id number] 1PA from chair to bathroom and back. No other needs expressed by Pt. Call light left in reach.
--- NOTE | 2025-02-09 09:00 | NUR ---
INTO SEE PATIENT. PERSONAL HEALTH INFORMATION OBTAINED. PATIENT LIVES WITH IN [place]. THEY LIVE IN A HOME WITH 5 STEPS AND RAILS TO GET INTO THE HOME. PATIENT USES A WALKER AND CANE. STATES HE REFUSES TO WEAR A CPAP. PATIENT NEEDS OXYGEN AND AGREEABLE TO USE IT. PATIENT CHOICE GIVEN PATIENT WOULD LIKE TO USE [facility]. DRIVES. DENIES ANY DIFFCULTY PAYING UTITILES OR OBTAINING FOOD. WILL PICK PATIENT WHEN MEDICALLY CLEARED FOR D/C. NO FUTHER NEEDS.
--- NOTE | 2025-02-09 09:00 | NUR ---
DR NGUYEN IN TO SEE PT PLAN GOING FORWARD DISCUSSED ALL QUESTIONS ANSWERED. PT ATE WELL FOR MORNING MEAL CONTINUES UP IN THE CHAIR AT THIS TIME. SATS 94% AT REST ON 1 L02. DENIES DISCOMFORTS OR NEEDS AT THIS TIME
[2025-02-09] MEDS ORDERED: SODIUM CHLORIDE 1 GM TAB PO SCH (09:38)
--- NOTE | 2025-02-09 10:24 | NUR ---
PT CONTINUES UP IN THE CHAIR WATCHING TV DENIES NEEDS AT THIS TIME, CALL LIGHT IN REACH
--- NOTE | 2025-02-09 11:22 | NUR ---
PT SITTING UP IN THE CHAIR DOZING, IS PRESENT IN THE ROOM
--- NOTE | 2025-02-09 11:47 | NUR ---
PT UP TO TOILET. FWW PROVIDED PER REQUEST PT AMBULATES IN ROOM SEVERAL BACK AND FORTHS. SATS DIP TO 87% REMAINS ON 02 1L RECOVERS QUICKLY AT REST.
--- NOTE | 2025-02-09 12:54 | NUR ---
UR CLINICAL REVIEW: 2 MN FOR VERSALUS-PER BACK ROLL LATHE OPERATOR FOR HYPONATREMIA WITH NEED FOR MONITORING, SERIAL LABS AND IV CORRECTION MEDICARE INPATIENT 02/08/25 @ 0804 ORDER MATCHES REG NO AUTH REQUIRED PER MEDICARE GUIDELINES DISCHARGE TO HOME WHEN STABLE 02/09/25 DC REVIEW
--- NOTE | 2025-02-09 13:32 | NUR ---
PT IS UP AMBULATING THE ORR WITH P/T.
[2025-02-09] MEDS ORDERED: ABIRATERONE ACETATE 250 MG TABLET PO SCH (14:00)
--- NOTE | 2025-02-09 14:14 | NUR ---
Assisted Pt with self-catheterization.Transferred to chair to bathroom and back. No other needs expressed by Pt. Call light left in reach. Chair alarm set.
--- NOTE | 2025-02-09 14:56 | NUR ---
[facility] ORDER SIGNED FOR [facility] AND FAXED.
--- NOTE | 2025-02-09 17:14 | NUR ---
ASSISTED PT TO AMBULATE IN THE ROOM THEN USES THE TOILET TO SELF CATH. PT RETURNS TO CHAIR EVENING MEAL IS SERVED
--- NOTE | 2025-02-09 17:59 | NUR ---
PT EATS MOST OF EVENING MEAL CONTINUES UP IN THE CHAIR DENIES NEEDS AT THIS TIME
--- NOTE | 2025-02-09 18:45 | NUR ---
Provided Pt with BB. Pt cleaned perinial area independently. Changed Pt's gown. Provided body lotion, and warm washcloth for face. No other needs expressed by Pt. Call light left in reach. Chair alarm set.
--- NOTE | 2025-02-09 19:15 | NUR ---
VERBAL REPORT RECEIVED FROM JACKIE DEVINE. PATIENT IS SITTING UP IN RECLINER AT THIS TIME, WATCHING TV. CPOX AT BEDSIDE. ON 1L VIA NC. TELE #3 READING SR. PATIENT DENIES ANY NEEDS AT THIS TIME. CALL LIGHT WITHIN REACH.
--- NOTE | 2025-02-09 21:24 | NUR ---
MEDICATION ADMINISTRATION COMPLETE. PATIENT COMPLAINS OF 7/10 BACK PAIN, MD RAMIREZ, RECEIVED NEW ORDERS VIA TELEPHONE, VERIFIED VIA READ BACK METHOD. PATIENT REPOSITIONED IN RECLINER FOR COMFORT. PATIENT SITTING UP IN RECLINR WATCHING TV. CPOX AT BEDSIDE. ON 1L O2 VIA NC. TELE #3 SR. NO FURTHER NEEDS AT THIS TIME. CALL LIGHT WITHIN REACH.
[2025-02-09] MEDS ORDERED: ACETAMINOPHEN 325 MG TAB PO PRN (21:30)
--- NOTE | 2025-02-09 21:42 | NUR ---
PATIENT COMPLAINS OF 7/10 BACK PAIN, PRN PAIN MEDICATION GIVEN (SEE EMAR). CPOX AT BEDSIDE. 1L O2 VIA NC. TELE #3 SR. PATIENT SITTING UP IN RECLINER WATCHING TV, DENIES FURTHER NEEDS AT THIS TIME. CALL LIGHT WITHIN REACH.
[2025-02-10] VITALS (8 sets, daily range): BP systolic 114–149; BP diastolic 58–66
--- NOTE | 2025-02-10 00:01 | NUR ---
PATIENT ASSISTED TO BATHROOM VIA SBA, URINATED 100ML OF CLEAR YELLOW URINE. PATIENT BACK IN RECLINER. CHAIR ALARM ON FOR PATIENT SAFETY. CALL LIGHT WITHIN REACH. CPOX AT BEDSIDE. TELE #3 SR.
--- NOTE | 2025-02-10 01:20 | NUR ---
PATIENT RESTING IN RECLINER EYES CLOSED, RESPIRATIONS EVEN AND UNLABORED. VSS. ON 1L O2 VIA NC. NO NEEDS AT THIS TIME. CALL LIGHT WITHIN REACH. TELE #3 SR. CHAIR ALARM ON FOR PATIENT SAFETY.
--- NOTE | 2025-02-10 02:28 | NUR ---
PATIENT CALLED. THIS LOCK CORNER MACHINE OPERATOR IN TO THE ROOM. SBA. PATIENT WALKED AROUND THE ROOM TO EXERCISE HIS LEGS. PATIENT DECIDED TO LAY IN BED AT THIS TIME. BED ALARM ON FOR SAFETY. CALL LIGHT AND SIDE TABLE WITHIN REACH.
--- NOTE | 2025-02-10 04:02 | NUR ---
PATIENT COMPLAINS OF SHOULDER AND BACK PAIN, PATIENT REQUEST TO AMBULATE ROOM TO HELP RELIEVE PAIN. PATIENT AMBULATES ROOM VIA FWW, SBA. PATIENT IS NOW IN BED WITH WARM COMPRESS AND DENIES AND NEEDS AT THIS TIME. CALL LIGHT WITHIN REACH. CPOX AT BEDSIDE. ON 1L O2 NC. TELE #3 SR.
[2025-02-10] MEDS ORDERED: MAGNESIUM CITRATE 300 ML BTL PO ONE (04:30)
--- NOTE | 2025-02-10 05:20 | NUR ---
PATIENT SITTING UP AT THE EDGE OF THE BED WATCHING TV, BED ALARM ON. CALL LIGHT WITHIN REACH. NO NEEDS AT THIS TIME. CPOX AT BEDSIDE. ON 1L O2 VIA NC. TELE #3 READING SR. PATIENT COMPLAINS OF CONSTIPATION, PRN MED GIVEN (SEE EMAR)
--- NOTE | 2025-02-10 06:00 | NUR ---
PATIENT WALKED AROUND NURSE'S STATION X1. PATIENT IS UP IN THE CHAIR. WARM PACK PROVIDED FOR HIS SHOULDER. CALL LIGHT AND SIDE TABLE WITHIN REACH.
--- NOTE | 2025-02-10 06:00 | NUR ---
PATIENT WALKING MEDSURG HALLWAYS WITH HOME HEALTH CARE RESPIRATORY THERAPIST VIA SBA, FWW AT THIS TIME.
--- NOTE | 2025-02-10 06:29 | NUR ---
SPOKE TO MD REGARDING PATIENTS COMPLAINTS OF PAIN, MD STATES WILL BE ON THE FLOOR SHORTLY AND ASSESS PATIENT.
--- NOTE | 2025-02-10 06:33 | NUR ---
PATIENT IS PASSING SOME GAS BUT HAS YET TO HAVE BM. PATIENT IS SITING IN RECLINER. CPOX AT BEDSIDE. ON 1L O2 VIA NC. TELE #3 SR. CALL LIGHT WITHIN REACH.
[2025-02-10] MEDS ORDERED: HYDROCODONE/ACETA 5/325 TAB PO PRN (07:15)
--- NOTE | 2025-02-10 07:25 | NUR ---
PT UP IN THE CHAIR WATCHING TV AT TIME OF SHIFT REPORT. C/O RIGHT SHOULDER BLADE HURTING HIM, HE WONDERS IF HE RESTED ON IT TOO LONG. AGREES HE IS READY FOR BREAKFAST. SATS 94% ON 1 L02 BREATHING EVEN AND UNLABORED
--- NOTE | 2025-02-10 07:42 | NUR ---
INTO SEE PATIENT. PATIENT WILL GO HOME TODAY WITH HOME OXYGEN FROM [place]. IMM LETTER COMPLETED. NO FUTHER CM NEEDS.
[2025-02-10 08:02] LABS: BASOPHILS 0.5 % (0.2-1.2); EOSINOPHILS 0.1 % (0.8-7.0); LYMPHOCYTES 4.5 % (21.8-53.1); MCH 27.9 PG (25.7-32.2); MCHC 32.4 g/dL (32.3-36.5); MCV 86.1 fL (79.0-92.2); MONOCYTES 6.4 % (5.3-12.2); NEUTROPHILS 85.1 % (34.0-67.9); RBC 3.80 M/uL (4.63-6.08)
[2025-02-10 08:07] LABS: ALT (SGPT) 22.0 U/L (14-59); AST (SGOT) 55.0 U/L (15-37); GLOMERULAR FILTRATION RATE,EST 88.0 mL/min (>60); PROTEIN, TOTAL 6.2 g/dL (6.4-8.2); UREA NITROGEN 19.0 mg/dL (7-18)
--- NOTE | 2025-02-10 08:21 | NUR ---
[facility] TO BE HERE AT 11 TO SET UP HOME OXYGEN.
--- NOTE | 2025-02-10 08:49 | NUR ---
PT CONTINUES UP IN THE CHAIR, EATS MOST OF MORNING MEAL, NO BM YET. PT C/O NOT SLEEPING, REQUESTS SOMETHING FOR TONIGHT. PT AGREES PAIN MEDS HAVE HELPED ALEVIATE PAIN IN HIS RIGHT SHOULDER BLADE. HE DENIES NEEDS AT THIS TIME
[2025-02-10] MEDS ORDERED: SODIUM CHLORIDE 1 GM TAB PO SCH (09:15)
--- NOTE | 2025-02-10 09:58 | NUR ---
INCREASES NA TABS TO BID. ONE ALREADY GIVEN THIS MORNING. PT UP TO THE BATHROOM SHAVES AND DOES OWN SELF CARES RETURNS TO REST IN THE RECLINER
--- NOTE | 2025-02-10 11:30 | NUR ---
PT UP TO AMBULATE IN THE ROOM AND "STRETCH HIS LEGS" DENIES SOB BUT SATS DO DIP DOWN TO HIGH 80'S. RECOVERS QUICKLY AT REST. PT RETURNS TO THE CHAIR AGREES HE IS READY FOR LUNCH
--- NOTE | 2025-02-10 11:40 | NUR ---
DC REVIEW: NO BARRIER TO DC NOTED DISCHARGE TO HOME WITH FAMILY WHEN STABLE ADD: 02/11/25 NO ACTIONS REQUIRED
--- NOTE | 2025-02-10 13:10 | NUR ---
PT SITTING UP IN THE CHAIR VISITING WITH A FRIEND.
--- NOTE | 2025-02-10 13:30 | NUR ---
HOURLY ROUNDING PATIENT HAS VISTORS, NO REQUEST AT THIS TIME
--- NOTE | 2025-02-10 14:47 | NUR ---
PT CALLS APPROPRIATLEY FOR UP TO THE TOILET. RETURNS TO THE RECLINER DENIES FURTHER NEEDS
--- NOTE | 2025-02-10 15:54 | NUR ---
PT REMAINS UP IN THE CHAIR AT THIS TIME IS PRESENT IN THE ROOM VISITING
--- NOTE | 2025-02-10 17:35 | NUR ---
PT EATS VERY LITTLE OF EVENING MEAL STATING IT WAS TOO SPICY, REFUSES OFFER OF OTHER ITEMS. CONTINUES UP IN THE CHAIR DENIES NEEDS OF
--- NOTE | 2025-02-10 17:59 | NUR ---
HOURLY ROUNDING PATIENT SITTING IN RECLINER, NO REQUEST AT THIS TIME CALL LIGHT HAS BEEN PLACED WITHIN REACH
--- NOTE | 2025-02-10 19:36 | NUR ---
VERBAL REPORT RECEIVED FROM JACKIE DEVINE. PATIENT IS RESTING IN RECLINER EYES CLOSED, RESPIRATION EVEN AND UNLABORED. NO NEEDS AT THIS TIME. CALL LIGHT WITHIN REACH.
--- NOTE | 2025-02-10 21:40 | NUR ---
MEDICATION ADMINISTRATION COMPLETE. PATIENT IS RESTING IN RECLINER AWAKE. PATIENT DOES NOT APPEAR TO BE IN ANY DISTRESS. ON 1L O2 VIA NC. PATIENT IS WATCHING TV AT THIS TIME. DENIES ANY PAIN. NO FURTHER NEEDS AT THIS TIME. CALL LIGHT WITHIN REACH.
[2025-02-11] VITALS (10 sets, daily range): BP systolic 102–142; BP diastolic 57–71
--- NOTE | 2025-02-11 00:39 | NUR ---
PATIENT RESTING IN RECLINER AT THIS TIME. RESPIRATIONS EVEN AND UNLABORED. CALL LIGHT WITHIN REACH NO NEEDS AT THIS TIME.
--- NOTE | 2025-02-11 01:39 | NUR ---
PATIENT SITTING UP IN RECLINER, RESPIRATIONS EVEN AND UNLABORED. DENIES SOB. ACAPELLA AT BEDSIDE. VSS. ON 1L VIA NC. TELE #3 SR. PATIENT DENIES ANY NEEDS AT THIS TIME. CALL LIGHT WITHIN REACH.
--- NOTE | 2025-02-11 01:53 | NUR ---
PATIENT ASSISTED TO BATHROOM VIA 1PA FWW. PATIENT PERFORMS SELF-CATH AND VOIDED 400ML OF CLEAR YELLOW URINE, TOLERATED WELL. PATIENT BACK IN RECLINER USING ACAPELLA. CALL LIGHT WITHIN REACH. NO FURTHER NEEDS AT THIS TIME.
--- NOTE | 2025-02-11 04:04 | NUR ---
PATIENT IS RESTING IN RECLINER EYES CLOSED, RESPIRATIONS EVEN AND UNLABORED. NO NEEDS AT THIS TIME. TELE #3 SR. ON 1L O2 VIA NC. CALL LIGHT WITHIN REACH.
--- NOTE | 2025-02-11 04:54 | NUR ---
CCU NOTIFIED. PATIENT TELE #3 SHOWED TACHYCARDIA WITH PEAK T WAVES. PATIENT WAS STANDING UP IN ROOM WITH REPRODUCTION TECHNICIAN STATED FEELING NAUSEOUS. THIS RN ENTERS ROOM, PATIENT SITTING UP IN RECLINER, STATES THE NAUSEA HAS STOPPED AND FEELS BETTER. PATIENT DENIES SOB OR CHEST PAIN. LAB IN ROOM DRAWING LABS AT THE TIME. VITAL OBTAINED, WNL. NO FURTHER NEEDS AT THIS TIME. CALL LIGHT IN REACH
[2025-02-11 05:11] LABS: BASOPHILS 0.5 % (0.2-1.2); EOSINOPHILS 0.2 % (0.8-7.0); LYMPHOCYTES 5.0 % (21.8-53.1); MCH 28.5 PG (25.7-32.2); MCHC 33.1 g/dL (32.3-36.5); MCV 85.9 fL (79.0-92.2); MONOCYTES 5.5 % (5.3-12.2); NEUTROPHILS 85.6 % (34.0-67.9); RBC 4.04 M/uL (4.63-6.08)
[2025-02-11 05:26] LABS: GLOMERULAR FILTRATION RATE,EST 89.0 mL/min (>60); UREA NITROGEN 19.0 mg/dL (7-18)
--- NOTE | 2025-02-11 06:23 | NUR ---
PATIENT SITTING UP IN RECLINER AT THIS TIME WATCHING TV. PATIENT MENTIONED TO BE PASSING GAS. DENIES SOB OR CHEST PAIN. PATIENT STATES TO NO LONGER HAVE NAUSEA. CALL LIGHT WITHIN REACH.
[2025-02-11] MEDS ORDERED: ONDANSETRON 4 MG TAB ODT SL PRN (07:15)
--- NOTE | 2025-02-11 07:35 | NUR ---
PT PASSES BM, SAMPLE COLLECTED FOR HEMOCCULT, HEOCULLT POSITIVE. DR. NGUYEN NOTIFIED.
[2025-02-11] MEDS ORDERED: Insulin Regular, Human 100 UNIT/ML ML SUB-Q ONE (08:00)
[2025-02-11] MEDS ORDERED: SODIUM POLYSTYRENE SULFONATE 15 GM/60 ML UDC PO ONE (08:00)
[2025-02-11] MEDS ORDERED: CALCIUM GLUCONATE 1,000 MG/10 ML VIAL IV ONE (08:00)
[2025-02-11] MEDS ORDERED: DEXTROSE 50% 50 ML SYR IV ONE (08:00)
--- NOTE | 2025-02-11 10:25 | NUR ---
Spoke with Osmani and his . Pt would like to go home today. He denies any needs. He has 02 and a cane at home. He does not want a walker. thinks he would benefit from having a walker. I gave them the infor for [place] for them to borrow a walker if he changes his mind.
[2025-02-11 12:50] LABS: GLOMERULAR FILTRATION RATE,EST 89.0 mL/min (>60); UREA NITROGEN 18.0 mg/dL (7-18)
--- NOTE | 2025-02-11 12:56 | NUR ---
NAOMI RECIEVED FOR BACK PAIN, SEE EMAR. PT SITS UP IN RECLINER, VISITORS X4 IN ROOM. CALL LIGHT IN REACH.
--- NOTE | 2025-02-11 13:02 | NUR ---
VISITS AND EATS LUNCH. ORANGE JUICE PROVIDED CONSIDERING BLOOD SUGAR 57 NOTED IN LABS. PT IS AWAKE AND ALERT.
[2025-02-11] MEDS ORDERED: ALBUTEROL SULFATE 0.083% 3 ML VIAL INH ONE (13:45)
[2025-02-11] MEDS ORDERED: FUROSEMIDE 20 MG/2 ML VIAL IV ONE (13:45)
--- NOTE | 2025-02-11 14:05 | NUR ---
PT CONTINUES TO HAVE POTASSIUM 5.3. WHEEZES AND COARSE SOUNDS IN [place] AND COARSE SOUNDS IN THE RUL. LASIX IV, RECEIVED AND BREATHING TREATMENT RECEIVED, SEE EMAR.
[2025-02-11] MEDS ORDERED: SODIUM CHLORI1000 M2 PO (16:15)
[2025-02-11 16:28] LABS: GLOMERULAR FILTRATION RATE,EST 77.0 mL/min (>60); UREA NITROGEN 19.0 mg/dL (7-18)
--- NOTE | 2025-02-11 17:14 | NUR ---
DISCUSSED DISCHARGE INSTRUCTIONS WITH PT AND SPOUSE. BOTH DENY UNDERSTANDING PT'S CHF. CHF PACKET PROVIDED AND REVIEWED WITH PT. MELANIA FROM [facility] CONTACTED AND IS TO FOLLOW UP WITH PT FOR FURTHER EDUCATION. PT EXPRESSES CONCERNS ABOUT HIS BP BEING LOWER THAN HIS USUAL. DR. NGUYEN CONTACTED, DR. NGUYEN SPEAKS WITH PT. PT CONCERNS ARE ADDRESSED.
--- NOTE | 2025-02-11 17:40 | NUR ---
PT DRESSES SELF WITH ASSIST FROM SPOUSE. PT LEAVES UNIT VIA WHEELCHAIR WITH BELONGINGS INCLUDING [facility] O2 TANK AND CELL PHONE. PT ESCORTED TO PRIVATE CARE DRIVEN BY SPOUSE.
== END 2025-02-11 17:40 | disposition home or self-care (01) | DRG 640 ==
LOC: ED 18:14 → MS 02-08 00:41
PROVIDERS: Emergency Medicine; Family Medicine; ADMIT Internal Medicine; ATTEND Internal Medicine
DX: E87.1 Hypo-osmolality and hyponatremia (principal); I50.33 Acute on chronic diastolic (congestive) heart failure; J96.01 Acute respiratory failure with hypoxia; C79.51 Secondary malignant neoplasm of bone; J91.0 Malignant pleural effusion; J44.9 Chronic obstructive pulmonary disease, unspecified; C61 Malignant neoplasm of prostate; I10 Essential (primary) hypertension; F17.210 Nicotine dependence, cigarettes, uncomplicated; Z98.890 Other specified postprocedural states; Z86.14 Personal history of Methicillin resistant Staphylococcus aureus infection; Z79.899 Other long term (current) drug therapy; Z79.891 Long term (current) use of opiate analgesic; Z79.51 Long term (current) use of inhaled steroids; Z79.52 Long term (current) use of systemic steroids; Z99.81 Dependence on supplemental oxygen; Z99.89 Dependence on other enabling machines and devices
CPT/HCPCS: 36415; 71045; 74177; 80048; 80053; 82803; 83735; 83880; 84295; 84484; 85025; 93005; 93010; 94640; 94667; 94668; 94761; 94762; 94799; 99285; 99406; A9270; J0612; J1815; J1938; J7030; J7131; J7512; J7605; Q9967